=== PATIENT | male | born 1975 | race African-American/Black ===

== ENCOUNTER 2016-09-13 01:17 | Observation (INO) ==
[2016-09-13] MEDS ORDERED: ONDANSETRON 4 MG/2 ML VIAL IV STA (01:33)
[2016-09-13] MEDS ORDERED: LACTATED RINGERS 2,000 ML IV ONE (01:33)
[2016-09-13] MEDS ORDERED: ONDANSETRON 4 MG/2 ML VIAL ONE (01:44)
[2016-09-13 01:50] LABS: Basophils % 0.2 % (0.0-0.8); Eosinophils % 0.3 % (0.00-10.9); Hemoglobin 13.2 GM/DL (14.0-18.0); Immature Granulocytes % 0.4 %; Immature Granulocytes Absolute 0.06 #; Lymphocytes # 0.6 10*3/uL (1.4-4.0); Lymphocytes % 3.9 % (21.2-54.2); Mean Corpuscular Hemoglobin 29 PG (27-34); Mean Corpuscular Volume 86.6 FL (87-102); Mean Platelet Volume 9.8 FL (9.6-12.0); Monocytes # 0.7 10*3/uL (0.11-0.8); Monocytes % 4.8 % (1.7-12.7); Neutrophils # 12.7 10*3/uL (1.4-7.4); Neutrophils % 90.4 % (38.7-73.9); Platelet Count 167 10*3/uL (130-400); Red Blood Count 4.62 10*6/uL (3.8-5.5); Red Cell Distribution Width 13.2 % (9.3-17.3); White Blood Count 14.1 10*3/uL (4.5-13.71)
[2016-09-13 02:14] LABS: Lactic Acid 1.1 MMOL/L (0.4-2.0)
[2016-09-13 02:17] LABS: Alanine Aminotransferase 16 U/L (16-61); Albumin 3.3 G/DL (3.4-5.0); Alkaline Phosphatase 74 U/L (45-117); Aspartate Amino Transferase 14 U/L (0-37); Blood Urea Nitrogen 16 MG/DL (7-18); Calcium 7.7 MG/DL (8.5-10.1); Glucose 123 MG/DL (74-106); Osmolality,Calculated 287.8 MOS/KG (273-304); Sodium 144 MMOL/L (136-145); Total Protein 6.5 G/DL (6.4-8.3); Troponin I Only < 0.015 NG/ML (0.00-0.045)
[2016-09-13 02:35] LABS: Band Neutrophils 2 % (0-10); Lymphocytes 6 % (20-55); Segmented Neutrophils 87 % (50-85); Total Cells Counted 100
[2016-09-13 02:36] LABS: Apearance,Urine CLEAR (Clear); Bilirubin,Urine Negative (Negative); Blood, Urine Moderate mg/dL (Negative); Glucose,Urine (UA) Negative (Negative); Hyaline Casts,Urine 3 /LPF (0-3); Ketones,Urine Negative (Negative); Mucus,Urine Occasional /LPF (Occasional); Nitrite,Urine Negative (Negative); Protein,Urine Negative; RBC,Urine 6 /HPF (0-4); Renal Epithelial Cells,Urine Occasional /HPF (<1); Squamous Epithelial Cell,Urine Occasional /HPF (0-10); Urine Color Yellow (Yellow); Urine Specific Gravity 1.021 (1.001-1.035); Urine Urobilinogen < 2.0 EU/DL (0.2-1.0); WBC,Urine 33 /HPF (0-6)
[2016-09-13 02:36] LABS: Atypical Lymphocytes Few; Hypochromasia Slight; Platelet Estimate Adequate
[2016-09-13 02:44] LABS: Barbiturates Screen,Urine Negative (Negative); Benzodiazepines Screen,Urine Negative (Negative); Cannabinoid Screen,Urine Negative (Negative); Opiate Screen,Urine Negative (Negative); Phencyclidine Screen,Urine Negative (Negative)
--- NOTE | 2016-09-13 04:47 | EKG Report ---
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
[2016-09-13] MEDS ORDERED: METOPROLOL TARTRATE 5 MG/5 ML VIAL IV STA (04:50)
[2016-09-13] MEDS ORDERED: METOPROLOL TARTRATE 5 MG/5 ML VIAL IV ONE (04:52)
[2016-09-13] MEDS ORDERED: cefTRIAXone 1,000 MG in SODIUM CHLORIDE 0.9% 100 ML IV STA (04:53)
[2016-09-13] MEDS ORDERED: cefTRIAXone 1,000 MG VIAL ONE (04:59)
[2016-09-13] MEDS ORDERED: SODIUM CHLORIDE 0.9% 100 ML IV ONE (04:59)
--- NOTE | 2016-09-13 05:47 | Emergency Department Note ---
Silviano Gutiérrez Brooke, am scribing for, and in the presence of, Elmer El MD 01:36. Nikko Gutiérrez Hans, MD, personally performed the services described in this documentation, ascribed by Josefina Shore in my presence, and it is both accurate and complete 546 . Arrival - Arrival Chief Complaint: Fever Stated Complaint: FEVER ED Nursing Triage Note: PT ARRIVES VIA EMS WITH COMPLAINTS OF FEVER AND FEELING BAD. STATES THAT HE WENT BACK TO WORK TONIGHT AND STARTED FEELING BAD AGAIN TONIGHT. STATES THAT HE HAS HAD A COUGH. DENIES ANY FEVER UNTIL TONIGHT. STATES HIS HEAD AND ABD HURTS WELL. Mode of Arrival: Stretcher Limitations: No Limitations Source: Patient, Family, RN Notes Reviewed Time Seen by Provider: 09/13/16 01:28 - History of Present Illness HPI Narrative: Patient is a 41 year old male brought into the ED by EMS with c/o body aches, nausea, vomiting, fever, and dysuria. Patient says he has been sick for the past week but got to feeling better so he went back to work today but states he is "just not feeling good anymore." Patient's temperature during triage was 1002. He says the dysuria started last night. He denies any blood in his stool or diarrhea. Patient has PMHx of HTN. Family member says Patient was having problems with his blood pressure being elevated "last week." Allergies/Adverse Reactions: Allergies Allergy/AdvReac Type Severity Reaction Status Date / Time No Known Allergies Allergy Verified 09/13/16 01:43 Home Medications: Home Medications Medication Instructions Recorded Confirmed Type No Known Home Medications [No 09/13/16 09/13/16 History Known Home Medications] Review of System - Review of System 12 point system: reviewed and no additional remarkable complaints except as stated - Review of System Constitutional: Present: fever Respiratory: Absent: respiratory distress Gastrointestinal: Present: nausea, vomiting. Absent: diarrhea, hematochezia Genitourinary male: Present: dysuria Musculoskeletal: Present: other (body aches) Skin: Absent: rash Medical,Surgical,& Family Hx - Medical History Cardio: History of: Hypertension (NO MEDS) - Social History Smoking Status: Never smoker Frequency of Alcohol Use: Occasionally Type of Drug Use: None Exam Vital Signs: Vital Signs Temperature 98.4 F 09/13/16 05:27 Pulse Rate 109 H 09/13/16 05:27 Respiratory Rate 23 09/13/16 05:27 Blood Pressure 131/93 09/13/16 05:27 O2 Sat by Pulse Oximetry 95 09/13/16 05:27 - General General appearance: alert, in no apparent distress - Head Head exam: Present: atraumatic, normocephalic - Eye Eye exam: Present: normal appearance, PERRL, EOMI - ENT ENT exam: Present: normal exam - Neck Neck exam: Present: normal inspection - Chest Chest inspection: Present: normal inspection, symmetric chest wall rise - Respiratory Respiratory exam: Present: normal lung sounds bilaterally - Cardiovascular Cardiovascular exam: Present: normal rhythm, tachycardia, normal heart sounds - Abdominal Exam Abdominal exam: Present: soft. Absent: distention, tenderness - Extremities Exam Extremities exam: Present: normal inspection - Back Exam Back exam: Present: normal inspection - Neurological Exam Neurological exam: Present: alert, oriented X3 - Psychiatric Psychiatric exam: Present: normal affect, normal mood - Skin Skin exam: Present: warm, dry, intact, normal color Course Course Narrative: This patient was evaluated with lab work, urinalysis, EKG, chest x-ray, and CT chest PE protocol for an elevated d-dimer. His initial heart rate was in the 140s and there was some concern about possible arrhythmia on that EKG. He responded to IV fluid resuscitation was heart rate was jumping around between the 100s in the 140s and he had an ectopic atrial tachycardia with some T-wave inversions on his repeat EKG. His troponins were negative. He did have about a week history of a viral prodrome prior to developing this arrhythmia and I felt like the safest thing and it is to admit him for monitoring on a monitored bed and make sure that there is not some underlying arrhythmia or maybe a viral myocarditis causing this to be occurring. I discussed this all with the hospitalist agreed to come and see him in the ER to evaluate him for an admission. Results - Labs CBC & BMP: 09/13/16 01:38 09/13/16 01:38 Lab Results: I have reviewed the patients labs Labs: Laboratory Tests 09/13/16 01:38 WBC 14.1 H Hgb 13.2 L Hct 40.0 L MCV 86.6 L Neut % (Auto) 90.4 H Lymph % (Auto) 3.9 L Neut # (Auto) 12.7 H Lymph # (Auto) 0.6 L Laboratory Tests 09/13/16 09/13/16 09/13/16 01:38 01:38 02:28 WBC 14.1 H Hgb 13.2 L Hct 40.0 L MCV 86.6 L Neut % (Auto) 90.4 H Lymph % (Auto) 3.9 L Neut # (Auto) 12.7 H Lymph # (Auto) 0.6 L Chloride 109 H Glucose 123 H Calcium 7.7 L Albumin 3.3 L Albumin/Globulin Ratio 1.0 L Urine Urobilinogen < 2.0 H Urine Leukocytes Small H Microbiology 09/13/16 02:28 Nasal Aspirate Influenza Types A,B Antigen (MARYAM) - Final Negative for Influenza A Ag Negative for Influenza B Ag Laboratory Tests 09/13/16 09/13/16 01:38 02:28 WBC 14.1 H Hgb 13.2 L Hct 40.0 L MCV 86.6 L Neut % (Auto) 90.4 H Lymph % (Auto) 3.9 L Neut # (Auto) 12.7 H Lymph # (Auto) 0.6 L Segmented Neutrophils 87 H Lymphocytes 6 L Urine Urobilinogen < 2.0 H Urine Leukocytes Small H Disposition Clinical Impression: Viral infection Case discussed with: patient, patient's family Disposition: Still a Patient Condition: Stable Instructions: Fever in Adults (ED) Time of Disposition: 05:47
--- NOTE | 2016-09-13 06:10 | Hospitalist History & Physical ---
Assessment and Plan (1) Urinary tract infection Status: Acute Current Visit: Yes (2) Tachycardia Status: Acute Current Visit: Yes (3) Febrile illness Status: Acute Assessment and plan: Plan for this patient Admit the patient to a monitored bed Treat his urinary tract infection Provide him with IV fluids Cultures urine Tranxene multivitamin and folate and thiamine Check him patient later today repeat cardiac enzymes he may or may not need a cardiology consult Current Visit: Yes History of Present Illness Chief complaint: tachycardia History of present illness: Mr. Bethea is a 41 year old male with past medical history of hypertension was transferred by EMS today. Patient gives a history of having a sinus infection about a week ago. He is puts on some amoxicillin. Increased blood pressure. His blood pressure came down was infection was treated. He went to work today after being off a week for the holiday. [place] was having bad fevers and chills. He felt like his heart was racing. He is felt short of breath like he couldn' t catch his breath. He had a tight sensation. He did break a sweat he is diaphoretic is having headache. He felt weak like he can get out of bed and he told his child to call EMS. Patient was brought up here further evaluation. Patient had a sinus tachycardia with some right 142 I was consulted to admit the patient. Home Medications Medication Instructions Recorded Confirmed Type No Known Home Medications [No 09/13/16 09/13/16 History Known Home Medications] Allergies Allergy/AdvReac Type Severity Reaction Status Date / Time No Known Allergies Allergy Verified 09/13/16 01:43 Medical,Surgical,& Family Hx - Medical History Cardio: History of: Hypertension (NO MEDS) - Surgical History Abdominal Surgeries: Surgical HX of: Hernia Repair - Family History Family History: Reports;: Family Diabetes, Family Hypertension - Social History Smoking Status: Never smoker Frequency of Alcohol Use: Occasionally Type of Drug Use: None 12 point system: reviewed and no additional remarkable complaints except as stated Exam - Constitutional Vitals: Period Temp Pulse Resp BP Sys/Saeed Pulse Ox Last 24 Hr 98.4 F-100.2 F 99-144 14-23 104-148/56-93 95-100 - General General appearance: alert, in no apparent distress - Head Head exam: Present: atraumatic, normocephalic - Eye Eye exam: Present: normal appearance, PERRL, EOMI - ENT ENT exam: Present: normal exam - Neck Neck exam: Present: normal inspection - Chest Chest inspection: Present: normal inspection, symmetric chest wall rise - Respiratory Respiratory exam: Present: normal lung sounds bilaterally - Cardiovascular Cardiovascular exam: Present: normal rhythm, tachycardia, normal heart sounds - Abdominal Exam Abdominal exam: Present: soft. Absent: distention, tenderness - Extremities Exam Extremities exam: Present: normal inspection - Back Exam Back exam: Present: normal inspection - Neurological Exam Neurological exam: Present: alert, oriented X3 - Psychiatric Psychiatric exam: Present: normal affect, normal mood - Skin Skin exam: Present: warm, dry, intact, normal color Results - Labs CBC & BMP: 09/13/16 01:38 09/13/16 01:38
--- NOTE | 2016-09-13 06:56 | CT Report ---
Exam: CT chest PE study The total DLP is 222.2 mGy*cm. Date: 09/13/2016 2:28 AM Indication: Tachypnea, dyspnea Comparison: Chest radiograph 09/13/16 Technical: Images were obtained from the thoracic inlet through the lung bases with 80 cc of Omnipaque 350 with axial and coronal imaging available for review. Findings: Mediastinum/vessels/lymph nodes: Pulmonary arteries are widely patent. There is no evidence of filling defect to suggest pulmonary emboli. The distal/subsegmental pulmonary arteries are poorly evaluated due to respiratory/patient motion, but no obvious filling defects or vessel cut off is identified. Heart appears unremarkable for non-gated study. There is no evidence of pericardial effusion. The aorta and great vessels appear widely patent. There is no adenopathy in the chest. Lungs: Minimal posterior basilar atelectasis. Otherwise, the lungs are clear. There is no pneumothorax or pleural effusion. There is no focal consolidation. No suspicious pulmonary nodules or masses are identified. Thyroid: Thyroid gland appears within normal limits. No acute abnormality is identified within the visualized upper abdomen. Small hiatal hernia is noted. BONES: No acute or suspicious appearing osseous abnormalities are identified. Impression: 1. No evidence of acute emboli. 2. Minimal posterior basilar atelectatic changes. Preliminary report by virtual radiologic. PROCEDURE INTERPRETED AT [facility] DEPARTMENT OF RADIOLOGY Final Report Signed by: Keith Fuller
[2016-09-13] MEDS: SODIUM CHLORIDE 0.9% 1,000 ML IV SCH ×3 (07:25→22:17)
--- NOTE | 2016-09-13 07:46 | XRay Report ---
Exam: XR chest 2V Indication: Chest pain , fever, cough Comparison study: None Findings: The heart, mediastinum, and bony structures are within normal limits. The heart size is borderline enlarged. There is no focal consolidation, pneumothorax or pleural effusion identified. Impression: No acute cardiopulmonary process. Borderline cardiomegaly. PROCEDURE INTERPRETED AT [facility] DEPARTMENT OF RADIOLOGY Final Report Signed by: Keith Fuller
[2016-09-13] MEDS: THIAMINE 100 MG TABLET PO SCH (09:00)
[2016-09-13] MEDS: FOLIC ACID 1 MG TABLET PO SCH (09:01)
[2016-09-13] MEDS: MULTIVITAMIN (CENTRUM) TABLET PO SCH (09:01)
[2016-09-13] MEDS: CLORAZEPATE 3.75 MG TABLET PO SCH ×3 (09:01→20:19)
[2016-09-13] MEDS: ENOXAPARIN 40 MG/0.4 ML SYRINGE SUBCUT SCH (09:01)
[2016-09-13] MEDS: ACETAMINOPHEN 325 MG TABLET PO PRN ×2 (09:07→17:42)
[2016-09-13 10:24] LABS: Troponin I Only < 0.015 NG/ML (0.00-0.045)
[2016-09-13] MEDS: IBUPROFEN 800 MG TABLET PO PRN ×2 (10:56→21:10)
--- NOTE | 2016-09-13 13:39 | EKG Report ---
Stationary ECG Study 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
[2016-09-13 14:37] LABS: Troponin I Only < 0.015 NG/ML (0.00-0.045)
[2016-09-13] MEDS: ONDANSETRON 4 MG/2 ML VIAL IV PRN (17:42)
[2016-09-14] MEDS: ONDANSETRON 4 MG/2 ML VIAL IV PRN ×2 (05:00→22:57)
[2016-09-14 06:16] LABS: Basophils % 0.1 % (0.0-0.8); Eosinophils % 0.1 % (0.00-10.9); Hematocrit 38.5 VOL% (42.0-52.0); Hemoglobin 12.1 GM/DL (14.0-18.0); Immature Granulocytes % 0.4 %; Immature Granulocytes Absolute 0.03 #; Lymphocytes # 0.5 10*3/uL (1.4-4.0); Lymphocytes % 5.7 % (21.2-54.2); Mean Corpuscular HGB Conc 31.4 GM/DL (32-36); Mean Corpuscular Hemoglobin 28 PG (27-34); Mean Corpuscular Volume 88.7 FL (87-102); Mean Platelet Volume 9.6 FL (9.6-12.0); Monocytes # 1.3 10*3/uL (0.11-0.8); Monocytes % 14.9 % (1.7-12.7); Neutrophils # 6.6 10*3/uL (1.4-7.4); Neutrophils % 78.8 % (38.7-73.9); Platelet Count 140 10*3/uL (130-400); Red Blood Count 4.34 10*6/uL (3.8-5.5); Red Cell Distribution Width 13.5 % (9.3-17.3); White Blood Count 8.4 10*3/uL (4.5-13.71)
[2016-09-14 06:43] LABS: Calcium 7.3 MG/DL (8.5-10.1); Osmolality,Calculated 288.6 MOS/KG (273-304); Potassium 3.6 MMOL/L (3.5-5.1)
[2016-09-14] MEDS: SODIUM CHLORIDE 0.9% 1,000 ML IV SCH (07:11)
[2016-09-14] MEDS: MULTIVITAMIN (CENTRUM) TABLET PO SCH (08:43)
[2016-09-14] MEDS: THIAMINE 100 MG TABLET PO SCH (08:43)
[2016-09-14] MEDS: FOLIC ACID 1 MG TABLET PO SCH (08:43)
[2016-09-14] MEDS: CLORAZEPATE 3.75 MG TABLET PO SCH ×3 (08:43→21:10)
[2016-09-14] MEDS: cefTRIAXone 1,000 MG in SODIUM CHLORIDE 0.9% 100 ML IV SCH (08:44)
[2016-09-14] MEDS: ENOXAPARIN 40 MG/0.4 ML SYRINGE SUBCUT SCH (08:44)
--- NOTE | 2016-09-14 09:52 | Hospitalist Progress Note ---
Assessment and Plan (1) Urinary tract infection Status: Acute Current Visit: Yes (2) Tachycardia Status: Acute Current Visit: Yes (3) Febrile illness Status: Acute Assessment and plan: Plan for this patient Admit the patient to a monitored bed Treat his urinary tract infection Provide him with IV fluids Cultures urine Tranxene multivitamin and folate and thiamine Check him patient later today repeat cardiac enzymes he may or may not need a cardiology consult 09/14/16 patient's tachycardia strictly associated with his fever. As his fever has defervesced his tachycardia has resolved. Patient still not feeling very well for observe him 1 more day with additional IV fluids Current Visit: Yes Hospitalist: Subjective Interval history: Patient complaining about somewhat loose bowel movements although than that feeling just drained. Exam - Constitutional Vitals: Period Temp Pulse Resp BP Sys/Saeed Pulse Ox Last 24 Hr 97.3 F-103 F 89-122 18-20 109-137/56-78 96-98 - General General appearance: alert, in no apparent distress - Head Head exam: Present: atraumatic, normocephalic - Eye Eye exam: Present: normal appearance, PERRL, EOMI - ENT ENT exam: Present: normal exam - Neck Neck exam: Present: normal inspection - Chest Chest inspection: Present: normal inspection, symmetric chest wall rise - Respiratory Respiratory exam: Present: normal lung sounds bilaterally - Cardiovascular Cardiovascular exam: Present: normal rhythm, tachycardia, normal heart sounds - Abdominal Exam Abdominal exam: Present: soft. Absent: distention, tenderness - Extremities Exam Extremities exam: Present: normal inspection - Back Exam Back exam: Present: normal inspection - Neurological Exam Neurological exam: Present: alert, oriented X3 - Psychiatric Psychiatric exam: Present: normal affect, normal mood - Skin Skin exam: Present: warm, dry, intact, normal color Results - Labs CBC & BMP: 09/14/16 06:03 09/14/16 06:03 Specialty Discharge - Follow Up or Referrals - Discharge Medications No Action No Known Home Medications [No Known Home Medications]
[2016-09-14] MEDS: SODIUM CHLOR 0.45% KCL 20 MEQ 20 MEQ/1,000 ML BAG IV SCH ×2 (10:05→18:46)
[2016-09-15] MEDS: SODIUM CHLOR 0.45% KCL 20 MEQ 20 MEQ/1,000 ML BAG IV SCH (04:53)
[2016-09-15 07:36] LABS: Calcium 7.6 MG/DL (8.5-10.1); Magnesium 2.2 MG/DL (1.8-2.4); Osmolality,Calculated 286.6 MOS/KG (273-304); Potassium 4.1 MMOL/L (3.5-5.1)
[2016-09-15] MEDS: FOLIC ACID 1 MG TABLET PO SCH (09:16)
[2016-09-15] MEDS: cefTRIAXone 1,000 MG in SODIUM CHLORIDE 0.9% 100 ML IV SCH (09:16)
[2016-09-15] MEDS: MULTIVITAMIN (CENTRUM) TABLET PO SCH (09:16)
[2016-09-15] MEDS: THIAMINE 100 MG TABLET PO SCH (09:16)
[2016-09-15] MEDS: CLORAZEPATE 3.75 MG TABLET PO SCH (09:16)
[2016-09-15] MEDS: ENOXAPARIN 40 MG/0.4 ML SYRINGE SUBCUT SCH (09:16)
[2016-09-15 09:38] VITALS: BP 149/90
--- NOTE | 2016-09-15 10:28 | Discharge Summary ---
Hospital Course - Hospital Course Hospital Course: Safety 41-year-old -[place] male past medical history hypertension who was transferred by EMS on the day of admission. Patient gives history of a sinus infection about a week ago. He was placed on some amoxicillin. He said his blood pressure came down when he was at his sinus infection treated. He felt short of breath couldn't catch her breath had a tight sensation he broke out in a sweat he came diaphoretic like he is having a headache. He came in with a sinus tach approximately 142. I was consulted to admit the patient. His tachycardia was associated with his fever. I have placed him on antibiotics. His white count came down. Patient's feeling much better he's virtually afebrile and he is ready for discharge - Time spent with patient Time with patient DS: Greater than 30 minutes Diagnosis - Discharge Diagnosis (1) Urinary tract infection Status: Acute (2) Tachycardia Status: Acute (3) Febrile illness Status: Acute Specialty Discharge - Follow Up or Referrals - Discharge Medications No Action No Known Home Medications [No Known Home Medications] Discharge Plan - Discharge Data Disposition: Disch To Home/Self Care Condition at Discharge: Stable Discharge Diet: advance to your usual diet - Discharge Medications New Acetaminophen Tab [Tylenol Tab] 650 mg PO Q4H PRN #0 tablet PRN Reason: fever, headache/body aches Amoxicillin/Clav Tab [Augmentin Tab] 875 mg PO Q12H #14 tablet amLODIPine [Norvasc] 5 mg PO DAILY #30 tablet - Follow Up or Referral - Forms/Instructions Instructions: Fever in Adults (ED) Additional Discharge Instructions: Patient should follow up with primary care provider of choice within 2 weeks and have a blood pressure check Exam - Constitutional Vitals: Period Temp Pulse Resp BP Sys/Saeed Pulse Ox Last 24 Hr 97.4 F-98.5 F 71-101 18-20 114-149/64-91 95-99 - General General appearance: alert, in no apparent distress - Head Head exam: Present: atraumatic, normocephalic - Eye Eye exam: Present: normal appearance, PERRL, EOMI - ENT ENT exam: Present: normal exam - Neck Neck exam: Present: normal inspection - Chest Chest inspection: Present: normal inspection, symmetric chest wall rise - Respiratory Respiratory exam: Present: normal lung sounds bilaterally - Cardiovascular Cardiovascular exam: Present: normal rhythm, tachycardia, normal heart sounds - Abdominal Exam Abdominal exam: Present: soft. Absent: distention, tenderness - Extremities Exam Extremities exam: Present: normal inspection - Back Exam Back exam: Present: normal inspection - Neurological Exam Neurological exam: Present: alert, oriented X3 - Psychiatric Psychiatric exam: Present: normal affect, normal mood - Skin Skin exam: Present: warm, dry, intact, normal color Discharge Results Labs on day of discharge: Labs from last 24 hours 09/15/16 05:54 Sodium 146 H Potassium 4.1 Chloride 109 H Carbon Dioxide 26 Anion Gap 15.1 H BUN 6 L Creatinine 0.90 GFR Calculation 124 BUN/Creatinine Ratio 6.00 Glucose 84 Calculated Osmolality 286.6 Calcium 7.6 L Magnesium 2.2 Preliminary micro results at discharge 09/13/16 Unknown Urine Culture - Preliminary Urine,Voided Gram Negative Rods 09/13/16 09:01 Blood Culture - Preliminary Blood No growth at 1 day 09/13/16 09:07 Blood Culture - Preliminary Blood No growth at 1 day DS: Provider Date of admission: 09/13/16 06:13 Primary care physician: Abiodun Jean DO Attending physician on admission: Ehsan Garces MD Consults: 09/13/16 06:55 Consult to Pharmacy [CONS] Routine Reason for Pharmacy Consult: Adjust Meds Renal Funct Discharging clinician: Ehsan Garces MD
== END 2016-09-15 11:31 | disposition home or self-care (01) ==
LOC: EDUNIT# → N.ED 01:17 → N.EDINP 01:17 → N.2E 06:42
PROVIDERS: ADMIT Internal Medicine; ATTEND Internal Medicine